=== PATIENT | male | born 1955 | race Caucasian/White ===

== ENCOUNTER → 2016-09-16 | Outpatient (CLI) | payer OTHER, MEDICARE ==
[~2016-09-16] MED LIST: AMOX-348 PO; BUME2TAB18 PO; CARV25TA PO; HYDR-4074 PO; INSU100I3 SQ; INSU100V8 SQ; LOSA100T44 PO; SILVER NITRATE APPLICATOR TOP ONE; SPIR25TA4 PO
== END ==
LOC: NWCC 09:56
PROVIDERS: ATTEND Internal Medicine
DX: E11.621 Type 2 diabetes mellitus with foot ulcer (principal); L97.511 Non-pressure chronic ulcer of other part of right foot limited to breakdown of skin; L97.412 Non-pressure chronic ulcer of right heel and midfoot with fat layer exposed; S91.155A Open bite of left lesser toe(s) without damage to nail, initial encounter; W54.0XXA Bitten by dog, initial encounter; R60.1 Generalized edema; I87.2 Venous insufficiency (chronic) (peripheral); B96.89 Other specified bacterial agents as the cause of diseases classified elsewhere; Z89.421 Acquired absence of other right toe(s)
CPT/HCPCS: 11042; 29581; 87070; 87075; 87147; 87205; 99213; A6209

== ENCOUNTER → 2016-09-21 | Outpatient (CLI) | payer OTHER, MEDICARE ==
[~2016-09-21] MED LIST changes: -SILVER NITRATE APPLICATOR TOP ONE
--- NOTE | 2016-09-21 19:16 | WOUNDPNF ---
DATE September 21, 2016 CHIEF COMPLAINT Followup for osteomyelitis of the right foot. HISTORY OF PRESENT ILLNESS Mr. Jacques is a 61-year-old man with a history of amputation of the right fifth toe for wet gangrene in August 2014. His wound culture at that time grew Enterococcus faecalis and Enterobacter cloacae. He was seen by Dr. Hi and treated with IV Zosyn through a PICC line. On review of records, it looks like he received Zosyn for a little over two weeks and then was changed to Augmentin for another two weeks. More recently he has developed an ulcer on the plantar aspect of the right metatarsal head that has been present for several weeks and felt to not be healing. He was treated with oral cephalexin last fall but because of GI side effects this was changed to oral doxycycline. Dr. Wakefield saw him on April 18 and at that time he was noted to have full-thickness wound with exposed subcutaneous tissue and bone. He has an AICD so MRI could not be done. He had a three-phase bone scan April 22 which showed abnormal uptake consistent with osteomyelitis in the right fifth metatarsal head. Wound culture from May 02, 2016 grew Enterobacter cloacae and Enterococcus faecalis. When I saw him initially on May 11 he had granulation tissue noted and there was no longer any exposed bone. I discussed IV antibiotics with him at that visit. However, he preferred to try oral antibiotics first. I initially started him on levofloxacin 500 mg daily for six weeks. However, his creatinine was elevated at 2.6 so I changed his Levaquin dose to 750 mg every 48 hours. He was supposed to finish a six-week course of Levaquin initially on June 22. However, he did not come back to see me in followup until June and reported that he finished out the levofloxacin on July 12. He had another bone scan on August 04 which again shows continued findings of osteomyelitis in the right fifth metatarsal head. He was seen by Dr. Zhou July 28 and the ulcer was noted to be increased in depth. I last saw him on August 10 and I had a long discussion with him about the fact that it is difficult for me to know if the positive bone scan is indicative of continued ongoing and active infection. I again discussed IV antibiotics with him which he was not very interested in pursuing. He also was considering hyperbaric oxygen. I also discussed the option of doing hyperbaric oxygen, either with Levaquin again or without. He wanted to return to the levofloxacin for another six weeks. He apparently has not been started with hyperbaric oxygen yet. However, he was given levofloxacin 750 mg every 48 hours for six weeks on August 10. By my calculation he should be finished with that today. However, he tells me he has a few pills left. At today's visit he tells me that he has had problems with high blood sugar related to the levofloxacin and problems with his vision which he thinks is related to the levofloxacin as well. He denies any other specific problems today. PAST MEDICAL HISTORY, PAST SURGICAL HISTORY Reviewed. ALLERGIES Cephalexin caused diarrhea and stomach upset. Codeine is listed as an allergy.. SOCIAL HISTORY, FAMILY HISTORY Reviewed. MEDICATIONS Reviewed. REVIEW OF SYSTEMS He denies any fevers, chills or sweats recently. He denies any nausea, vomiting or diarrhea. Denies much in the way of pain in his foot. 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 PHYSICAL EXAM VITAL SIGNS: Temperature 97.8, blood pressure 124/85, pulse 78, respirations 20. GENERAL: He appears comfortable and is in no acute distress. HEENT: Pupils equal, round, reactive to light. Extraocular movements intact. Oropharynx is clear. NECK: Supple. HEART: Regular rate and rhythm. No murmurs noted. LUNGS: Clear to auscultation bilaterally anteriorly. ABDOMEN: Soft, nontender. He has bowel sounds present. No guarding or rebound. EXTREMITIES: No joint effusions are noted. He has trace peripheral edema and he had a wound on the plantar aspect of the right lateral foot. This appears mostly clean and has some granulation tissue noted. The wound itself looks superficial. There is no purulence, no surrounding cellulitis or fluctuance. The wound measures 1 x 1 x 0.3 cm. NEUROLOGIC: Exam is grossly nonfocal. He is alert and oriented x 3. Speech is normal. PSYCHIATRIC: His mood and affect are appropriate. SKIN: No rashes. LABORATORY His most recent creatinine was 2.8 on August 15. BUN was 61. Glucose was 257. C-reactive protein was 13 which has improved. Sedimentation rate was 30. IMPRESSION 1. Chronic osteomyelitis of the right fifth metatarsal head. Cultures April 2016 with Enterobacter cloacae resistant only to cefazolin and Enterococcus faecalis sensitive to ampicillin, status post six to eight weeks of oral Levaquin therapy completed July 12, 2016, with return to Levaquin therapy August 10 through September 21 due to persistently positive bone scan. 2. Status post amputation of the right fifth toe for wet gangrene July 2014. Cultures at that time grew Enterobacter cloacae and Enterococcus faecalis. 3. Diabetes mellitus type 2 on insulin, with peripheral neuropathy. 4. Recent visual problems per patient, question diabetic retinopathy. 5. Chronic kidney disease stage III with calculated creatinine clearance of 35. 6. Congestive heart failure status post AICD placement with an ejection fraction of 30%. 7. Hypertension. 8. Gout. 9. Obesity. 10. Intolerance to cephalexin. PLAN/DISCUSSION I will repeat a CBC, BMP, CRP and sed rate today for monitoring purposes. I had wanted to have these repeated a few weeks ago. However, the patient did not come in to have that done. I discussed with him that I think he has completed another six weeks of levofloxacin and that we could discontinue that. I wonder if he has missed a few doses which is why he has some remaining tablets. However, I am not sure that he will have much additional benefit by continuing this medication and he is concerned about side effects. I will let him follow up with Dr. Zhou and discuss hyperbaric oxygen therapy to help heal this wound. Again I recommended to him that I think he needs to be seen and followed by a flour inspector. I will be happy to see him back in followup as needed. IDALMIS
[2016-09-22 09:57] LABS: BASOPHILS % (AUTO) 0.4 % (0-2); EOSINOPHILS # (AUTO) 0.2 T/MM3 (0-0.5); EOSINOPHILS % (AUTO) 2.5 % (0-4); HCT - HEMATOCRIT 36.4 % (41-53); HGB - HEMOGLOBIN 12.1 GM/DL (13.5-17.5); IMMATURE GRANULOCYTE # (AUTO) 0.02 T/MM3 (0.00-0.03); IMMATURE GRANULOCYTE % (AUTO) 0.3 % (0.0-0.5); LYMPHOCYTES # (AUTO) 1.1 T/MM3 (1-4.8); LYMPHOCYTES % (AUTO) 16.4 % (23-45); MEAN CORPUSCULAR HGB 29.7 UUG (26-34); MEAN CORPUSCULAR HGB CONC(MCHC 33.2 GM/DL (31-37); MEAN CORPUSCULAR VOLUME 89.4 UM3 (80-100); MEAN PLATELET VOLUME 10.3 UM3 (9.4-12.4); MONOCYTES # (AUTO) 0.5 T/MM3 (0-0.8); MONOCYTES % (AUTO) 6.7 % (0-9.0); NEUTROPHILS #(AUTO)-ABSOLUTE 4.9 T/MM3 (1.8-7.7); NEUTROPHILS % (AUTO) 73.7 % (33-66); RED BLOOD COUNT 4.07 M/MM3 (4.50-5.90); WBC - WHITE BLOOD COUNT 6.7 T/MM3 (4.5-11.0)
[2016-09-22 10:07] LABS: ANION GAP 10 MEQ/L (5-15); BUN/CREATININE RATIO 22 RATIO (6-26); CHLORIDE 104 MEQ/L (98-107); CO2 - CARBON DIOXIDE 26 MEQ/L (22-30); CREATININE 2.6 MG/DL (0.8-1.5); GLOMERULAR FILTRATION RATE 25; GLUCOSE 207 MG/DL (75-110); POTASSIUM 5.1 MEQ/L (3.6-5); SODIUM 140 MEQ/L (134-144)
== END ==
LOC: NWCC 09:36
PROVIDERS: ATTEND Internal Medicine Infectious Disease
DX: E11.621 Type 2 diabetes mellitus with foot ulcer (principal); L97.412 Non-pressure chronic ulcer of right heel and midfoot with fat layer exposed; R60.1 Generalized edema; I87.2 Venous insufficiency (chronic) (peripheral); S91.155A Open bite of left lesser toe(s) without damage to nail, initial encounter; W54.0XXA Bitten by dog, initial encounter; M86.671 Other chronic osteomyelitis, right ankle and foot; E11.42 Type 2 diabetes mellitus with diabetic polyneuropathy; Z79.4 Long term (current) use of insulin; E11.319 Type 2 diabetes mellitus with unspecified diabetic retinopathy without macular edema; I12.9 Hypertensive chronic kidney disease with stage 1 through stage 4 chronic kidney disease, or unspecified chronic kidney disease; N18.3 Chronic kidney disease, stage 3 (moderate); M10.9 Gout, unspecified; E66.9 Obesity, unspecified; Z68.33 Body mass index [BMI] 33.0-33.9, adult
CPT/HCPCS: 11042; 29581; 80048; 85025; A6209

== ENCOUNTER → 2016-09-28 | Outpatient (CLI) | payer OTHER, MEDICARE ==
[~2016-09-28] MED LIST changes: +CALMOSEPTINE OINTMENT 3.5 G PACKET TOP ONE; +SALINE FLUSH 10ml SYRINGE IVF ONE
== END ==
LOC: NWCC 14:24
PROVIDERS: ATTEND Internal Medicine
DX: E11.621 Type 2 diabetes mellitus with foot ulcer (principal); L97.412 Non-pressure chronic ulcer of right heel and midfoot with fat layer exposed; R60.1 Generalized edema; I87.2 Venous insufficiency (chronic) (peripheral); S91.155A Open bite of left lesser toe(s) without damage to nail, initial encounter; W54.0XXA Bitten by dog, initial encounter; E11.40 Type 2 diabetes mellitus with diabetic neuropathy, unspecified
CPT/HCPCS: 11042; 29581; 99213; A6021; A6209

== ENCOUNTER → 2016-10-07 | Outpatient (CLI) | payer OTHER, MEDICARE | LOC: NWCC 10:34 | PROVIDERS: ATTEND Internal Medicine | DX: E11.621 Type 2 diabetes mellitus with foot ulcer (principal); L97.412 Non-pressure chronic ulcer of right heel and midfoot with fat layer exposed; I87.2 Venous insufficiency (chronic) (peripheral); R60.1 Generalized edema; S90.474A Other superficial bite of right lesser toe(s), initial encounter; W54.0XXA Bitten by dog, initial encounter; S91.104A Unspecified open wound of right lesser toe(s) without damage to nail, initial encounter; M86.671 Other chronic osteomyelitis, right ankle and foot | CPT/HCPCS: 11042; 29581; 99213; A6021; A6210 ==

== ENCOUNTER → 2016-10-17 | Outpatient (CLI) | payer OTHER, MEDICARE | LOC: NWCC 09:23 | PROVIDERS: ATTEND Internal Medicine | DX: E11.621 Type 2 diabetes mellitus with foot ulcer (principal); L97.412 Non-pressure chronic ulcer of right heel and midfoot with fat layer exposed; R60.1 Generalized edema; I87.2 Venous insufficiency (chronic) (peripheral); S91.155A Open bite of left lesser toe(s) without damage to nail, initial encounter; W54.0XXA Bitten by dog, initial encounter; S91.104A Unspecified open wound of right lesser toe(s) without damage to nail, initial encounter; S81.802A Unspecified open wound, left lower leg, initial encounter; B96.89 Other specified bacterial agents as the cause of diseases classified elsewhere | CPT/HCPCS: 11042; 29581; 87070; 87075; 87106; 87147; 87205; 99213; A6209; A6210 ==

== ENCOUNTER → 2016-10-21 | Outpatient (CLI) | payer OTHER, MEDICARE ==
[~2016-10-21] MED LIST changes: -CALMOSEPTINE OINTMENT 3.5 G PACKET TOP ONE; -SALINE FLUSH 10ml SYRINGE IVF ONE
== END ==
LOC: NWCC 09:00
PROVIDERS: ATTEND Internal Medicine
DX: E11.621 Type 2 diabetes mellitus with foot ulcer (principal); L97.412 Non-pressure chronic ulcer of right heel and midfoot with fat layer exposed; I87.2 Venous insufficiency (chronic) (peripheral); S91.155A Open bite of left lesser toe(s) without damage to nail, initial encounter; W54.0XXA Bitten by dog, initial encounter; S91.104A Unspecified open wound of right lesser toe(s) without damage to nail, initial encounter; R60.1 Generalized edema
CPT/HCPCS: 99213; A6209

== ENCOUNTER → 2016-10-26 | Outpatient (CLI) | payer OTHER, MEDICARE ==
[~2016-10-26] MED LIST changes: +CALMOSEPTINE OINTMENT 3.5 G PACKET TOP ONE
== END ==
LOC: NWCC 15:04
PROVIDERS: ATTEND Internal Medicine
DX: E11.621 Type 2 diabetes mellitus with foot ulcer (principal); L97.412 Non-pressure chronic ulcer of right heel and midfoot with fat layer exposed; S91.104A Unspecified open wound of right lesser toe(s) without damage to nail, initial encounter; S81.802A Unspecified open wound, left lower leg, initial encounter; R60.1 Generalized edema; I87.2 Venous insufficiency (chronic) (peripheral); S90.475A Other superficial bite of left lesser toe(s), initial encounter; W54.0XXA Bitten by dog, initial encounter
CPT/HCPCS: 11042; 11045; 29581; 99213; A6209

== ENCOUNTER → 2016-11-03 | Outpatient (CLI) | payer OTHER, MEDICARE ==
[~2016-11-03] MED LIST changes: +SALINE FLUSH 10ml SYRINGE ONE
== END ==
LOC: NWCC 11:10
PROVIDERS: ATTEND Internal Medicine
DX: E11.621 Type 2 diabetes mellitus with foot ulcer (principal); L97.412 Non-pressure chronic ulcer of right heel and midfoot with fat layer exposed; R60.1 Generalized edema; I87.2 Venous insufficiency (chronic) (peripheral); S81.802A Unspecified open wound, left lower leg, initial encounter
CPT/HCPCS: 29581; 99213; A6209

== ENCOUNTER → 2016-11-10 | Outpatient (CLI) | payer OTHER, MEDICARE ==
[~2016-11-10] MED LIST changes: +SALINE FLUSH 10ml SYRINGE IVF ONE; -SALINE FLUSH 10ml SYRINGE ONE
== END ==
LOC: NWCC 14:04
PROVIDERS: ATTEND Internal Medicine
DX: E11.621 Type 2 diabetes mellitus with foot ulcer (principal); R60.1 Generalized edema; I87.2 Venous insufficiency (chronic) (peripheral); L97.412 Non-pressure chronic ulcer of right heel and midfoot with fat layer exposed; S81.802A Unspecified open wound, left lower leg, initial encounter; L97.512 Non-pressure chronic ulcer of other part of right foot with fat layer exposed; B96.89 Other specified bacterial agents as the cause of diseases classified elsewhere; L53.9 Erythematous condition, unspecified
CPT/HCPCS: 11042; 87070; 87075; 87106; 87205; 99213; A6209

== ENCOUNTER → 2016-11-14 | Outpatient (CLI) | payer OTHER, MEDICARE | LOC: NWCC 09:38 | PROVIDERS: ATTEND Internal Medicine | DX: E11.621 Type 2 diabetes mellitus with foot ulcer (principal); L97.412 Non-pressure chronic ulcer of right heel and midfoot with fat layer exposed; R60.1 Generalized edema; I87.2 Venous insufficiency (chronic) (peripheral); S81.802A Unspecified open wound, left lower leg, initial encounter; L97.512 Non-pressure chronic ulcer of other part of right foot with fat layer exposed | CPT/HCPCS: 29581; 99213; A6209 ==

== ENCOUNTER → 2016-11-17 | Outpatient (CLI) | payer OTHER, MEDICARE | LOC: NWCC 15:36 | PROVIDERS: ATTEND Internal Medicine | DX: E11.621 Type 2 diabetes mellitus with foot ulcer (principal); L97.412 Non-pressure chronic ulcer of right heel and midfoot with fat layer exposed; S81.802A Unspecified open wound, left lower leg, initial encounter; T87.89 Other complications of amputation stump; Y83.8 Other surgical procedures as the cause of abnormal reaction of the patient, or of later complication, without mention of misadventure at the time of the procedure; R60.1 Generalized edema; E11.40 Type 2 diabetes mellitus with diabetic neuropathy, unspecified | CPT/HCPCS: 11042; 29581; A6209 ==